=== PATIENT | male | born 1965 | race Caucasian/White ===

== ENCOUNTER 2022-09-16 08:55 | Observation (INO) ==
[2022-09-16] MEDS ORDERED: 0.9 % Sodium Chloride 1,000 ML IVC ONE (10:23)
[2022-09-16] MEDS ORDERED: Iopamidol - 370 500 ML MLS IVP ONE (10:25)
[2022-09-16 10:35] LABS: Basophils # 0.1 K/mcL (0.0-0.2); Basophils % 0.9 %; Eosinophils # 0.1 K/mcL (0.0-0.6); Eosinophils % 1.2 %; Hematocrit 37.9 % (37.5-50.1); Hemoglobin 12.8 g/dL (12.9-16.9); Immature Granulocytes % 0.9 % (0-4); Lymphocytes # 3.2 K/mcL (0.6-4.6); Lymphocytes % 30.3 %; Mean Corpuscular HGB Conc 33.8 g/dL (31.6-35.5); Mean Corpuscular Hemoglobin 31.1 pg (28.0-33.3); Mean Corpuscular Volume 92.2 fL (83.0-100.0); Mean Platelet Volume 11.2 fL (9.4-12.4); Monocytes # 0.9 K/mcL (0.0-1.3); Monocytes % 8.6 %; Neutrophils # 6.1 K/mcL (1.6-8.9); Platelet Count 301 K/mcL (140-400); Red Blood Count 4.11 M/mcL (4.19-5.50); Red Cell Distribution Width 11.9 % (11.5-14.5); Segmented Neutrophils % 58.1 %; White Blood Count 10.6 K/mcL (4.3-11.1)
[2022-09-16 10:45] LABS: BUN/Creatinine Ratio 24 (6-26); Blood Urea Nitrogen 21 mg/dL (6-20); Calcium 9.4 mg/dL (8.6-10.3); Carbon Dioxide 28 mEq/L (23-29); Chloride 107 mEq/L (98-107); Glucose 142 mg/dL (70-105); Osmolality,Calculated 297 (280-300); Potassium 3.6 mEq/L (3.5-5.1); Sodium 141 mEq/L (136-145)
[2022-09-16] MEDS ORDERED: Ondansetron 4 MG/2 ML VIAL IVP ONE (12:46)
[2022-09-16] MEDS ORDERED: SODIUM CHLORIDE/NAHCO3/KCL/PEG 4,000 ML SOLN.RECON PO ONE (12:57)
[2022-09-16] MEDS ORDERED: Naloxone 0.4 MG/ML INJ IVP PRN (13:21)
[2022-09-16 13:27] LABS: Hematocrit 33.4 % (37.5-50.1); Hemoglobin 11.3 g/dL (12.9-16.9); Mean Corpuscular HGB Conc 33.8 g/dL (31.6-35.5); Mean Corpuscular Hemoglobin 31.6 pg (28.0-33.3); Mean Corpuscular Volume 93.3 fL (83.0-100.0); Mean Platelet Volume 10.6 fL (9.4-12.4); Platelet Count 257 K/mcL (140-400); Red Blood Count 3.58 M/mcL (4.19-5.50); Red Cell Distribution Width 11.9 % (11.5-14.5); White Blood Count 12.9 K/mcL (4.3-11.1)
[2022-09-16] MEDS ORDERED: D5% in 0.45% NACL 1,000 ML IVC SCH (13:30)
[2022-09-16] MEDS: *HR* Promethazine 25 MG/ML VIAL IM PRN (15:40)
[2022-09-16] MEDS: Ringers Solution, Lactated 1,000 ML IVC SCH ×2 (15:40→23:32)
[2022-09-16] MEDS ORDERED: Morphine Sulfate 2 MG/ML SYRINGE IVP PRN (19:22)
[2022-09-16 19:29] LABS: Hematocrit 32.7 % (37.5-50.1); Hemoglobin 11.1 g/dL (12.9-16.9)
[2022-09-16 19:36] LABS: INR 1.2; Prothrombin Time 13.6 Seconds (9.4-12.1)
[2022-09-16] MEDS: Ondansetron 4 MG/2 ML VIAL IVP PRN (20:47)
[2022-09-17] MEDS: DilTIAZem CD (24hr) 120 MG CAP.ER.24H PO SCH (01:18)
[2022-09-17] MEDS ORDERED: *HR* Metoprolol 5 MG/5 ML VIAL IVP ONE (03:50)
[2022-09-17 05:01] LABS: Hemoglobin 10.1 g/dL (12.9-16.9); Mean Corpuscular HGB Conc 32.6 g/dL (31.6-35.5); Mean Corpuscular Hemoglobin 30.9 pg (28.0-33.3); Mean Corpuscular Volume 94.8 fL (83.0-100.0); Mean Platelet Volume 11.2 fL (9.4-12.4); Platelet Count 251 K/mcL (140-400); Red Blood Count 3.27 M/mcL (4.19-5.50); Red Cell Distribution Width 12.1 % (11.5-14.5); White Blood Count 10.7 K/mcL (4.3-11.1)
[2022-09-17 05:17] LABS: Alanine Aminotransferase 13 Units/L (7-52); Albumin 3.3 g/dL (3.5-5.7); Albumin/Globulin Ratio 1.8 (1.1-2.2); Alkaline Phosphatase 33 Units/L (34-104); Aspartate Amino Transferase 12 Units/L (13-39); BUN/Creatinine Ratio 19 (6-26); Bilirubin,Total 0.7 mg/dL (0.3-1.0); Blood Urea Nitrogen 15 mg/dL (6-20); Calcium 8.9 mg/dL (8.6-10.3); Carbon Dioxide 30 mEq/L (23-29); Chloride 107 mEq/L (98-107); Globulin 1.8 g/dL (2.4-3.5); Glucose 109 mg/dL (70-105); Magnesium 1.6 mg/dL (1.6-2.6); Osmolality,Calculated 295 (280-300); Potassium 3.5 mEq/L (3.5-5.1); Sodium 142 mEq/L (136-145); Total Protein 5.1 g/dL (6.4-8.9)
[2022-09-18] MEDS ORDERED: Acetaminophen 325 MG TABLET PO ONE (00:02)
[2022-09-18] MEDS: Ondansetron 4 MG/2 ML VIAL IVP PRN (00:08)
[2022-09-18] MEDS: *HR* Promethazine 25 MG/ML VIAL IM PRN (04:19)
[2022-09-18] MEDS: DilTIAZem CD (24hr) 120 MG CAP.ER.24H PO SCH (08:39)
[2022-09-18 09:44] LABS: Hematocrit 31.6 % (37.5-50.1); Hemoglobin 10.7 g/dL (12.9-16.9)
[2022-09-18 10:25] VITALS: BP 99/55; PULSE 77; TEMP 99.1; O2SAT 95
== END 2022-09-18 12:40 | disposition home or self-care (01) ==
LOC: 2ANU 08:55 → EMEROOARM 08:55 → 2ANU 14:23
PROVIDERS: ADMIT Internal Medicine; ATTEND Internal Medicine